=== PATIENT | male | born 1990 ===

== ENCOUNTER 2023-04-17 08:26 | Day surgery (SDC) | payer OTHER ==
[2023-04-09 10:32] LABS: PH,URINE 5.5 (5.0-8.0); URINE APPEARANCE Clear; URINE BILIRRUBIN Negative (NEGATIVE); URINE BLOOD Negative; URINE COLOR Yellow; URINE GLUCOSE Negative (NEGATIVE); URINE LEUKOCYTE Negative; URINE NITRATE Negative; URINE PROTEIN Negative (NEGATIVE); URINE UROBILINOGEN 0.2 E.U./dl
[2023-04-09 10:37] LABS: URINE EPITHELIAL CELLS 2.1 uL (0.0-38.8); URINE WBC 2.1 uL (0.0-23.2)
[2023-04-09 10:53] LABS: URINE RBC 1.1 uL (0.0-20.8)
[2023-04-09 10:59] LABS: INR 1.12; PARTIAL THROMBOPLASTIN TIME 28.4 SECONDS (22.0-34.0); PROTHROMBIN TIME 11.7 SECONDS (9.0-11.5)
[2023-04-09 11:09] LABS: ALBUMIN 4.2 gm/dL (3.4-5.0); BILIRUBIN TOTAL 0.87 mg/dL (0.3-1.2); CALCIUM 9.3 mg/dL (8.5-10.1); CREATININE SERUM 1.01 mg/dL (0.70-1.30); GFR 86.16; GLOBULINA 3.8 G/DL (2.4-3.5); POTASSIUM 4.34 mEq/L (3.5-5.1)
[2023-04-09 11:24] LABS: HEMATOCRIT 48.3 % (39.0-48.0); HEMOGLOBIN 17.1 g/dL (13-16.00); MEAN CELL VOLUME 88.2 fL (80.0-100.00); MEAN CORPUSCULAR HEMOGLOBIN 31.1 pg (27.00-32.0); MEAN CORPUSCULAR HGB CONC 35.3 g/dl (32.0-36.0); PLATELET COUNT 208 K/uL (150-450); RED BLOOD COUNT 5.48 M/uL (4.00-6.00); RED CELL DISTRIBUTION WIDTH 13.1 % (11.5-14.5)
[2023-04-17] MEDS ORDERED: PERCOCET 5-3251 EACH PO (15:11)
[2023-04-17] MEDS ORDERED: KETO10TA2 PO (15:11)
[2023-04-17] MEDS ORDERED: NEURONTIN300 MG PO (15:12)
== END 2023-04-17 19:40 | disposition home or self-care (01) ==
LOC: CIR.AMB 08:26
PROVIDERS: ATTEND Surgery
DX: R85.613 High grade squamous intraepithelial lesion on cytologic smear of anus (HGSIL) (principal); D37.8 Neoplasm of uncertain behavior of other specified digestive organs; K62.89 Other specified diseases of anus and rectum; Z20.822 Contact with and (suspected) exposure to COVID-19; I10 Essential (primary) hypertension